=== PATIENT | male | born 2000 | race Caucasian/White ===

== ENCOUNTER 2018-11-09 17:50 | Emergency (ER) | payer BC ==
[2018-11-09] MEDS ORDERED: Fluorescein Opthalmic Strip ONE (18:13)
[2018-11-09] MEDS ORDERED: Proparacaine 0.5% Opth 15 ML BOT ONE (18:17)
--- NOTE | 2018-11-09 19:13 | CT ---
CT OF BRAIN PERFORMED WITHOUT CONTRAST ENHANCEMENT: 11/09/18 HISTORY: Patient with left eye pain, dilated pupil. The ventricular and cisternal system is within normal limits. No signs of any intracerebral hemorrhag e or extra-axial fluid collections. Sella turcica region appears unremarkable on this exam. I do not appreciate any type of sellar mass. Mastoid air cells and visualized sinuses are clear. IMPRESSION: No acute intracranial abnormalities. POS: [facility]
== END 2018-11-09 22:33 | disposition short-term general hospital (02) ==
LOC: ERS 17:50
DX: H57.04 Mydriasis (principal)
CPT/HCPCS: 70450